=== PATIENT | female | born 1955 | race Caucasian/White ===

== ENCOUNTER → 2023-10-01 06:27 | Day surgery (SDC) | payer BC, SELFPAY | LOC: GI 06:27 | PROVIDERS: ATTENDING PHYSICIAN Internal Medicine Gastroenterology; FAMILY PHYSICIAN Family Medicine | DX: Z12.11 Encounter for screening for malignant neoplasm of colon (principal); K63.5 Polyp of colon; K57.30 Diverticulosis of large intestine without perforation or abscess without bleeding; K62.1 Rectal polyp; K64.8 Other hemorrhoids; Z86.010 Personal history of colon polyps | CPT/HCPCS: 45380; 88305 ==

== ENCOUNTER → 2024-03-02 10:52 | Outpatient (REF) | payer BC, SELFPAY | LOC: HWWDC 10:52 | PROVIDERS: ATTENDING PHYSICIAN Family Medicine | DX: Z12.31 Encounter for screening mammogram for malignant neoplasm of breast (principal) | CPT/HCPCS: 77063; 77067 ==

== ENCOUNTER → 2024-08-13 09:03 | Outpatient (REF) | payer BC, SELFPAY | LOC: RAD 09:03 | PROVIDERS: ATTENDING PHYSICIAN Student in an Organized Health Care Education/Training Program; FAMILY PHYSICIAN Family Medicine | DX: I21.09 ST elevation (STEMI) myocardial infarction involving other coronary artery of anterior wall (principal); I25.10 Atherosclerotic heart disease of native coronary artery without angina pectoris; I10 Essential (primary) hypertension; E78.1 Pure hyperglyceridemia | CPT/HCPCS: 71275; Q9967 ==

== ENCOUNTER → 2024-09-25 13:20 | Outpatient (REF) | payer BC, SELFPAY | LOC: HWRAD 13:20 | PROVIDERS: ATTENDING PHYSICIAN Family Medicine | DX: M85.80 Other specified disorders of bone density and structure, unspecified site (principal); Z13.820 Encounter for screening for osteoporosis | CPT/HCPCS: 77080 ==

== ENCOUNTER → 2024-10-06 08:00 | Outpatient (REF) | payer BC, SELFPAY | LOC: RAD 08:00 | PROVIDERS: ATTENDING PHYSICIAN Student in an Organized Health Care Education/Training Program; FAMILY PHYSICIAN Family Medicine | DX: I25.42 Coronary artery dissection (principal) | CPT/HCPCS: 74174; Q9967 ==

== ENCOUNTER → 2024-10-08 11:47 | Outpatient (REF) | payer BC, SELFPAY | LOC: RAD 11:47 | PROVIDERS: ATTENDING PHYSICIAN Student in an Organized Health Care Education/Training Program; FAMILY PHYSICIAN Family Medicine | DX: I25.42 Coronary artery dissection (principal) | CPT/HCPCS: 70496; Q9967 ==

== ENCOUNTER → 2024-11-25 07:50 | Outpatient (REF) | payer BC, SELFPAY | LOC: RAD 07:50 | PROVIDERS: ATTENDING PHYSICIAN Student in an Organized Health Care Education/Training Program; FAMILY PHYSICIAN Family Medicine | DX: I25.42 Coronary artery dissection (principal) | CPT/HCPCS: 70498; Q9967 ==